=== PATIENT | female | born 1940 | race Caucasian/White ===

== ENCOUNTER 2018-03-27 17:34 | Emergency (ER) | payer MEDICARE ==
[~2018-03-27] VITALS: Ht 152.4 cm; Wt 100.7 kg
[2018-03-27 17:34] VITALS: BP 158/94
[2018-03-27] MEDS ORDERED: TDAP [DIPH/PERTUSSIS/TET] 0.5 ML VIAL IM ONE ×2 (17:57→18:00)
--- NOTE | 2018-03-27 18:30 | NUR ---
WOUND CARE DONE. PT D/C HOME IN STABLE CONDITION.
== END 2018-03-27 18:32 | disposition home or self-care (01) ==
LOC: ER 17:35
DX: S81.812A Laceration without foreign body, left lower leg, initial encounter (principal); I10 Essential (primary) hypertension; E11.9 Type 2 diabetes mellitus without complications; E78.00 Pure hypercholesterolemia, unspecified; Z60.2 Problems related to living alone; W45.8XXA Other foreign body or object entering through skin, initial encounter; Y93.01 Activity, walking, marching and hiking; Y92.89 Other specified places as the place of occurrence of the external cause; Y99.8 Other external cause status
CPT/HCPCS: 90471; 90715; 99283; A4606 ×2; A6403; Z7610

== ENCOUNTER 2019-10-25 22:28 | Inpatient (IN) | payer MEDICARE ==
[~2019-10-25] VITALS: Ht 152.4 cm; Wt 112.0 kg
--- NOTE | 2019-10-25 22:35 | NUR ---
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 PT AAOX4 NO ACUTE DISTRESS NOTED, RESP EVEN AND UNLABORED. SKIN WARM, NONDIAPHORETIC. PLACE PT ON CARDIAC MONITORING, CONTINUOUS POX. PENDING ER MD CHANCE.
--- NOTE | 2019-10-25 22:39 | NUR ---
ER MD AT BEDSIDE TO EVAL PT WITH ORDERS RECEIVED.
--- NOTE | 2019-10-25 22:53 | NUR ---
BLOOD DRAWN BY NUTRITION CONSULTANT.
[2019-10-25 22:58] LABS: BASOPHILS % (AUTO) 0.4 % (0.0-2.0); EOSINOPHILS % (AUTO) 3.8 % (0.0-6.0); HEMATOCRIT 41 % (33-45); HEMOGLOBIN 13.8 g/dL (11.5-14.8); LYMPHOCYTES # (AUTO) 1.2 /CMM (0.8-4.8); LYMPHOCYTES % (AUTO) 13.7 % (20.0-44.0); MEAN CORPUSCULAR HGB CONC 34 g/dl (31.0-36.0); MEAN CORPUSCULAR VOLUME 96 fL (82-100); MONOCYTES # (AUTO) 0.6 /CMM (0.1-1.30); MONOCYTES % (AUTO) 6.4 % (2.0-12.0); NEUTROPHILS # (AUTO) 6.8 /CMM (1.8-8.9); NEUTROPHILS % (AUTO) 75.7 % (43.0-81.0); PLATELET COUNT (AUTO) 231 /CMM (150-450); RED BLOOD CELL COUNT(AUTO) 4.28 MIL/uL (4.0-5.2)
[2019-10-25 23:12] LABS: CALCIUM, SERUM 8.7 mg/dL (8.5-10.1); CARBON DIOXIDE 30 mmol/L (21-32); CHLORIDE 102 mmol/L (98-107); GLUCOSE 108 mg/dL (74-106); POTASSIUM 3.9 mmol/L (3.5-5.1); SODIUM SERUM 140 mmol/L (136-145); UREA NITROGEN, BLOOD 9 mg/dL (7-18)
[2019-10-25 23:26] LABS: ALANINE AMINOTRANSFERASE 35 U/L (12-78); ALBUMIN 3.7 g/dL (3.4-5.0); ALKALINE PHOSPHATASE 38 U/L (46-116); ASPARTATE AMINOTRANSFERASE 25 U/L (15-37); B-TYPE NATRIURETIC PEPTIDE 331 PG/ML (0-125); BILIRUBIN,DIRECT 0.1 mg/dL (0.0-0.2); BILIRUBIN,TOTAL 0.3 mg/dL (0.2-1.0); TOTAL PROTEIN, SERUM 7.2 g/dL (6.4-8.2)
[2019-10-25] MEDS ORDERED: MORPHINE SULFATE INJ 2 MG/ML DISP.SYRIN IV ONE (23:30)
[2019-10-25] MEDS ORDERED: ONDANSETRON HCL/PF 4 MG/2 ML VIAL IVP ONE (23:30)
[2019-10-25] MEDS ORDERED: ONDANSETRON HCL/PF 4 MG/2 ML VIAL ONE (23:49)
[2019-10-25] MEDS ORDERED: MORPHINE SULFATE INJ 4 MG/ML DISP.SYRIN ONE (23:50)
--- NOTE | 2019-10-25 23:55 | NUR ---
REPORT CALLED TO ARCHITECTURAL MANAGER AMY.
--- NOTE | 2019-10-26 | NUR ---
IV ACCESS OBTAINED, MEDS GIVEN. PT NISHA WELL.
--- NOTE | 2019-10-26 00:19 | NUR ---
DR. SALDANA PAGED PER ER ORDER.
[2019-10-26] MEDS ORDERED: MORPHINE SULFATE INJ 2 MG/ML DISP.SYRIN IV PRN (00:30)
[2019-10-26] MEDS ORDERED: Z GUARD REMEDY 2 OZ OINT TP PRN (00:30)
[2019-10-26] MEDS ORDERED: MAG HYDROX/AL HYDROX/SIMETH 30 ML UDC PO PRN (00:30)
[2019-10-26] MEDS ORDERED: ONDANSETRON HCL/PF 4 MG/2 ML VIAL IVP PRN (00:30)
[2019-10-26] MEDS ORDERED: MAGNESIUM HYDROXIDE 30 ML UDC PO PRN (00:30)
[2019-10-26] MEDS ORDERED: ZOLPIDEM TARTRATE 5 MG TABLET PO PRN (00:30)
--- NOTE | 2019-10-26 00:36 | NUR ---
ER SPOKE TO ZAHEER MATT DNP REGARDING PT ADMISSION.
--- NOTE | 2019-10-26 00:48 | NUR ---
Petra gibson in [facility] - 10/26/19 at 0048 by CHARLES [phone] NUMBER
--- NOTE | 2019-10-26 00:59 | NUR ---
PT TRANSFETED PER ACLS PROTOCOL.
[2019-10-26 01:00] VITALS: BP 135/52
[2019-10-26 01:45] VITALS: BP 135/52
--- NOTE | 2019-10-26 01:45 | NUR ---
WEFT STRAIGHTENERFAMILY MANAGER NOTES RECEIVED PATIENT FROM ER VIA [facility] ACCOMPANIED BY DAUGHTER AND ER STAFF. ALERT AND ORIENTED X 3, ASSISTED ON AMBULATING TO THE BED. VERBALLY RESPONSIVE AND ABLE TO FOLLOW DIRECTIONS. BREATHING REGULAR AND UNLABORED ON ROOM AIR. RIGHT AC G20 IV LINE PATENT AND INTACT, FLUSHING WELL WITH NO BLEEDING OR S/S OF INFILTRATION NOTED. BODY ASSESSMENT DONE, SEEN WITH LEFT FOOT TOENAIL DRYNESS BUT SKIN IS INTACT, CLEAN AND DRY. PHOTO TAKEN, KEPT IN THE CHART. PATIENT HAS ADVANCE DIRECTIVE WITH HER DAUGHTER LOUISA MESSER DPOA, NOTIFIED. WILL PROVIDE COPY IN THE CHART BUT OF NOW PATIENT WISHES TO BE FULL CODE. BELONGINGS CHECKED AND ACCOUNTED BY PATIENT. ATTACHED TO J2EE APPLICATION DEVELOPER WITH NSR AT 76bpm. NO COMPLAINTS OF CHEST PAIN OR DISCOMFORT REPORTED AT THIS TIME. BED LOW AND LOCKED ON SEMI FOWLERS POSITION. CALL LIGHT IN REACH. WILL CONTINUE TO MONITOR.
[2019-10-26] MEDS: ACETAMINOPHEN 325 MG TABLET PO PRN ×2 (02:16→20:46)
--- NOTE | 2019-10-26 02:20 | NUR ---
BRAIDER SETTER NOTES NOTED WITH BODY TEMPERATURE OF 100, TYLENOL 650MG GIVEN BY MOUTH. COOLING MEASURES PROVIDED. WILL CONTINUE TO MONITOR.
--- NOTE | 2019-10-26 03:20 | NUR ---
POWER PLANT ASSISTANT NOTES BODY TEMP. DECREASED TO 98.8
[2019-10-26] MEDS: HYDROCODONE/APAP 5/325MG 1 EACH TABLET PO PRN ×2 (06:03→16:10)
--- NOTE | 2019-10-26 06:10 | NUR ---
TEST ENGINEERING TECHNICIAN NOTES COMPLAINED OF 5/10 HEADACHE, NORCO 5/325 GIVEN BY MOUTH. NON PHARMACOLOGICAL INTERVENTIONS PROVIDED. VITAL SIGNS WNL. WILL CONTINUE TO MONITOR.
--- NOTE | 2019-10-26 06:20 | NUR ---
SENIOR MILITARY ANALYST CLOSING NOTES PATIENT IN BED ALERT AND ORIENTED X 3. VERBALLY RESPONSIVE AND ABLE TO FOLLOW DIRECTIONS. BREATHING REGULAR AND UNLABORED ON ROOM AIR. RIGHT AC G20 IV LINE PATENT AND FLUSHING WELL. MAINTAINED ON MONOGRAM MACHINE OPERATOR WITH NSR AT 78bpm. NO COMPLAINTS OF CHEST PAIN REPORTED AT THIS TIME. BED LOW AND LOCKED ON SEMI FOWLERS POSITION. CALL LIGHT IN REACH. WILL ENDORSE TO MORNING SHIFT FOR TANIA.
--- NOTE | 2019-10-26 07:30 | NUR ---
ms rn received on bed, awake,alert,oriented x4,not in any form of distress,respirations even and unlabored,no sob noted, lungs are diminish, abdomen soft,positive bowel sounds,denies pinat this time,all needs attended.
[2019-10-26 08:00] VITALS: BP 115/55
--- NOTE | 2019-10-26 08:00 | NUR ---
ms rn was seen by dr. veena swenson/ orders made and carried out.
[2019-10-26 08:32] LABS: THYROID STIMULATING HORMONE 2.21 uIU/mL (0.358-3.74)
[2019-10-26] MEDS ORDERED: METOPROLOL TARTRATE 25 MG TABLET PO SCH (09:00)
--- NOTE | 2019-10-26 09:00 | NUR ---
ms rn meds held at this time, due to heart procedure.
[2019-10-26] MEDS ORDERED: METOPROLOL TARTRATE INJ 5 MG/5 ML AMPUL ONE ×2 (09:14→09:44)
[2019-10-26] MEDS ORDERED: NITROGLYCERIN 0.4 MG/TAB BOTTLE ONE (09:14)
[2019-10-26] MEDS ORDERED: IOHEXOL-350 100 ML VIAL IV ONE ×2 (09:18→10:11)
[2019-10-26] MEDS ORDERED: IV NS 0.9% 250 ML IV ONE (09:18)
[2019-10-26] MEDS: METOPROLOL TARTRATE INJ 5 MG/5 ML AMPUL IVP PRN ×10 (09:24→10:09)
[2019-10-26] MEDS ORDERED: IV NS 0.9% 500 ML IV PRN (09:30)
[2019-10-26] MEDS ORDERED: NITROGLYCERIN 0.4 MG/TAB BOTTLE SL ONE (09:30)
[2019-10-26] MEDS ORDERED: METF-440 PO (09:45)
[2019-10-26] MEDS ORDERED: POTA20TA83 PO (09:45)
[2019-10-26] MEDS ORDERED: ESCI20TA PO (09:45)
[2019-10-26] MEDS ORDERED: SIMV-49 PO (09:45)
[2019-10-26] MEDS ORDERED: PROP120C2 PO (09:45)
[2019-10-26] MEDS ORDERED: FURO20TA4 PO (09:45)
[2019-10-26] MEDS ORDERED: PRIM50TA27 PO (09:45)
--- NOTE | 2019-10-26 10:20 | NUR ---
CTA heart completed, Received Metoprolol 5mg IVP x 10 doses and NTG 0.4 mg SL, tolerated procedure; denies CP or SOB, VSS. latest BP at 112/58 HR 68; transported back to [facility] via wheelchair, handoff report given to Shara BENITO
--- NOTE | 2019-10-26 11:00 | NUR ---
ms rn went down for ct angio to builder's labourer.
--- NOTE | 2019-10-26 13:00 | NUR ---
ms rn ms rn came back from procedure,all needs attended.
[2019-10-26] MEDS: LISINOPRIL (5MG) 5 MG TABLET PO SCH (13:08)
[2019-10-26] MEDS: ASPIRIN EC 81 MG TABLET.DR PO SCH (13:08)
[2019-10-26] MEDS: METOPROLOL TARTRATE 25 MG TABLET PO SCH ×2 (13:09→21:28)
--- NOTE | 2019-10-26 15:00 | NUR ---
ms rn was seen by dr. sami swenson/ orders made and carried out.
[2019-10-26 16:00] VITALS: BP 135/91
[2019-10-26] MEDS: LEVOFLOXACIN 750 MG /D5W 150ML 750 MG in PREMIX 1 EA IV SCH (16:13)
--- NOTE | 2019-10-26 16:20 | NUR ---
ms rn spoke w/ , promise to reconcile meds for this patient and might be going home in am per dr. gallardo.
--- NOTE | 2019-10-26 18:18 | NUR ---
ms rn on bed,no distress noted.
[2019-10-26] MEDS ORDERED: METFORMIN 500 MG TABLET PO SCH (18:30)
[2019-10-26] MEDS: PRIMIDONE 50 MG TABLET PO SCH (18:32)
--- NOTE | 2019-10-26 19:30 | NUR ---
RN PM NOTES BEDSIDE REPORT RECIEVED FROM CHICO BENITO. PATIENT IN BED IN NO APPARENT DISTRESS ON RA. IV ANTIBIOTIC FINISHED. PATIENT HEPLOCKED IV TO RIGHT AC HEPLOCKED. WITH NO S/S OF INFILTRATION. REVIEWED POC. PATIENT DENIES SOB OR CHEST PAIN. BED RAILS X2. CALL LIGHT IN REACH BED DOWN AND LOCKED. WILL CONT TO MONITOR. VERBALIZED UNDERSTANDING TO CALL FOR ASSISTANCE NEEDED.
[2019-10-26 20:00] VITALS: BP 119/49
--- NOTE | 2019-10-26 20:46 | NUR ---
tylenol administered as ordered. for right shoulder pain rated 3/10 per patient request.
[2019-10-26] MEDS ORDERED: SIMVASTATIN 20 MG TABLET PO SCH (22:00)
[2019-10-26] MEDS ORDERED: ESCITALOPRAM OXALATE (10 MG) 10 MG TABLET PO SCH (22:00)
[2019-10-27 06:34] LABS: BASOPHILS % (AUTO) 0.2 % (0.0-2.0); EOSINOPHILS % (AUTO) 2.5 % (0.0-6.0); HEMATOCRIT 39 % (33-45); HEMOGLOBIN 12.8 g/dL (11.5-14.8); LYMPHOCYTES # (AUTO) 1.7 /CMM (0.8-4.8); LYMPHOCYTES % (AUTO) 26.5 % (20.0-44.0); MEAN CORPUSCULAR HGB CONC 33 g/dl (31.0-36.0); MEAN CORPUSCULAR VOLUME 97 fL (82-100); MONOCYTES # (AUTO) 0.7 /CMM (0.1-1.30); MONOCYTES % (AUTO) 11.9 % (2.0-12.0); NEUTROPHILS # (AUTO) 3.7 /CMM (1.8-8.9); NEUTROPHILS % (AUTO) 58.9 % (43.0-81.0); PLATELET COUNT (AUTO) 194 /CMM (150-450); RED BLOOD CELL COUNT(AUTO) 3.97 MIL/uL (4.0-5.2); WHITE BLOOD COUNT (AUTO) 6.3 K/uL (4.3-11.0)
[2019-10-27 07:18] LABS: ALBUMIN 3.2 g/dL (3.4-5.0); BILIRUBIN,TOTAL 0.2 mg/dL (0.2-1.0); CALCIUM, SERUM 8.2 mg/dL (8.5-10.1); CREATININE 0.9 mg/dL (0.6-1.3); MAGNESIUM 1.9 mg/dL (1.8-2.4); PHOSPHORUS 3.2 mg/dL (2.5-4.9); POTASSIUM 4.2 mmol/L (3.5-5.1)
[2019-10-27] MEDS: ACETAMINOPHEN 325 MG TABLET PO PRN (07:30)
--- NOTE | 2019-10-27 07:38 | NUR ---
MS RN OPENING NOTES RECEIVED PT IN BED, AWAKE, A/O X4. PT TOLERATING RA, WITH NO ACUTE RESPIRATORY DISTRESS NOTED. PT STATED PAIN OF 2-3/10 FOR HEADACHE AND REQUESTING [id number] DURING MORNING ROUNDS, PRN MEDICINE GIVEN ORDERED AT 0730. PIV TO RAC G20, FLUSHED WITH NS, INTACT AND OPERATIONAL. PT KEPT COMFORTABLE. PT'S BED IN LOWEST, LOCKED POSITION WITH SR X3. WILL CONTINUE PLAN OF CARE.
[2019-10-27 08:00] VITALS: BP 124/57
[2019-10-27] MEDS: ASPIRIN EC 81 MG TABLET.DR PO SCH (08:14)
[2019-10-27] MEDS: PRIMIDONE 50 MG TABLET PO SCH ×3 (08:15→17:00)
[2019-10-27] MEDS: LISINOPRIL (5MG) 5 MG TABLET PO SCH (08:17)
[2019-10-27] MEDS: METOPROLOL TARTRATE 25 MG TABLET PO SCH (08:17)
[2019-10-27] MEDS ORDERED: FUROSEMIDE 20 MG TABLET PO SCH (09:00)
[2019-10-27] MEDS ORDERED: POTASSIUM CHLORIDE 20 MEQ TAB.PRT.SR PO SCH (09:00)
--- NOTE | 2019-10-27 11:25 | NUR ---
MS RN NOTES SPOKE TO DR BRIGHT REGARDING DR. MAYORGA'S CLEARANCE FOR DISCHARGE. PER DR BRIGHT, HE WILL PUT THE DISCHARGE ORDER IN A BIT. WILL CONTINUE TO MONITOR.
[2019-10-27 13:52] VITALS: BP 110/57
[2019-10-27] MEDS: LEVOFLOXACIN 750 MG /D5W 150ML 750 MG in PREMIX 1 EA IV SCH (14:04)
--- NOTE | 2019-10-27 15:52 | NUR ---
MS RN NOTES PAGED DR BRIGHT, NEED FOLLOW UP FOR DISCHARGE. ORDER AND PRESCRIPTION. AWAITING FOR CALL BACK.
[2019-10-27 16:00] VITALS: BP 180/80
[2019-10-27] MEDS ORDERED: LEVO750T21 PO (17:01)
[2019-10-27 17:29] VITALS: BP 187/90
[2019-10-27] MEDS: METOPROLOL TARTRATE INJ 5 MG/5 ML AMPUL IVP PRN (17:29)
--- NOTE | 2019-10-27 17:29 | NUR ---
MS RN NOTES PT'S BP AT 187/90, PRN METOPROLOL IV GIVEN ORDERED.
--- NOTE | 2019-10-27 17:58 | NUR ---
MS METAL MACHINE SETTER NOTES PT GOING HOME WITH ASSISTED HOMEHEALTH, PT A/O X4. PT TOLERATING RA, WITH NO ACUTE RESPIRATORY DISTRESS NOTED. PT DENIES ANY P[AIN OR DISCOMFORT AT THE TIME OF DISCHARGE. PIV TO RAC G20, REMOVED AND APPLIED DRY DRESSING. DISCHARGE INSTRUCTIONS AND INVENTORY LIST, REVIEWED AND SIGNED BY PT WITH THE DAUGHTER AT BEDSIDE. ALL BELONGINGS WITH THE PT. ALL NEEDS AND CARE ATTENDED. SKIN INTACT, NO PICTURES TAKEN AND FILED. INFANT TEACHER ESCORTED PT TO THE LOBBY VIA WHEELCHAIR. VS STABLE, BP WENT DOWN TO 146/70. PT LEFT THE UNIT AT 1755. HOSPITALIST/ED AND CN/DUSTIN MADE AWARE.
[2019-10-28] MEDS ORDERED: METFORMIN 500 MG TABLET PO SCH (18:30)
[2019-10-29] MEDS ORDERED: METFORMIN 500 MG TABLET PO SCH (09:00)
== END 2019-10-27 19:00 | disposition home or self-care (01) | DRG 303 ==
LOC: ER 22:31 → TELE 10-26 00:04 → MED 10-26 10:23
PROVIDERS: ADMIT Internal Medicine; ATTEND Internal Medicine
DX: I25.110 Atherosclerotic heart disease of native coronary artery with unstable angina pectoris (principal); J44.1 Chronic obstructive pulmonary disease with (acute) exacerbation; I10 Essential (primary) hypertension; E11.9 Type 2 diabetes mellitus without complications; E78.00 Pure hypercholesterolemia, unspecified; E78.5 Hyperlipidemia, unspecified; G47.33 Obstructive sleep apnea (adult) (pediatric); E66.01 Morbid (severe) obesity due to excess calories; J40 Bronchitis, not specified as acute or chronic
CPT/HCPCS: 36415; 71045-TC; 75574; 80048-TC; 80053-TC; 80061-TC; 80076-TC; 83735-TC; 83880; 84100-TC; 84439-TC; 84443-TC; 84484-TC; 85025-TC; 85730-TC; 87081-TC; 93307-TC; 97116-TC; 97530-TC; A4216; G0378; J1956; J2270; J2405; J3490; J7050; Q9967